=== PATIENT | male | born 1955 | race Caucasian/White ===

== ENCOUNTER 2021-02-19 05:36 | Emergency (ER) | payer BC, MEDICARE ==
[2021-02-19 06:24] LABS: BASOPHILS # (AUTO) 0.1 10^3/uL (0.0-0.1); BASOPHILS % (AUTO) 0.8 %; EOSINOPHILS # (AUTO) 0.3 10^3/uL (0.0-0.7); EOSINOPHILS % (AUTO) 4.6 %; HCT - HEMATOCRIT 44.6 % (42.0-52.0); HGB - HEMOGLOBIN 14.6 g/dL (14.0-18.0); LYMPHOCYTES % (AUTO) 42.4 %; MEAN CORPUSCULAR HEMOGLOBIN 29.9 pg (27.0-31.0); MEAN CORPUSCULAR HGB CONC 32.7 g/dL (32.0-36.0); MEAN CORPUSCULAR VOLUME 91.4 fL (80.0-94.0); MEAN PLATELET VOLUME 9.5 fL (7.4-11.4); MONOCYTES # (AUTO) 0.9 10^3/uL (0.0-1.0); MONOCYTES % (AUTO) 13.1 %; NEUTROPHILS # (AUTO) 2.8 10^3/uL (1.5-6.6); PLT - PLATELET COUNT 278 10^3/uL (130-450); RED BLOOD COUNT 4.88 10^6/uL (4.70-6.10); RED CELL DISTRIBUTION WIDTH 13.2 % (12.0-15.0); WHITE BLOOD COUNT 7.2 x10^3/uL (4.8-10.8)
[2021-02-19 06:35] LABS: BILIRUBIN,URINE NEGATIVE (NEGATIVE); GLUCOSE, URINE (UA) NEGATIVE (NEGATIVE); KETONES,URINE (UA) NEGATIVE (NEGATIVE); LEUKOCYTE ESTERASE, URINE NEGATIVE (NEGATIVE); NITRITE,URINE NEGATIVE (NEGATIVE); OCCULT BLOOD,URINE MODERATE (NEGATIVE); PH,URINE 5.5 PH (5.0-7.5); PROTEIN,URINE NEGATIVE (NEGATIVE); UROBILINOGEN,URINE 0.2 (NORMAL) E.U./dL (NORMAL)
[2021-02-19 06:36] LABS: ALBUMIN 4.1 g/dL (3.2-5.5); ALBUMIN/GLOBULIN RATIO 1.1 (1.0-2.2); BILIRUBIN,TOTAL 0.6 mg/dL (0.2-1.0); CREATININE 0.8 mg/dL (0.6-1.2); POTASSIUM 3.5 mmol/L (3.5-5.0); TOTAL PROTEIN 7.9 g/dL (6.7-8.2)
[2021-02-19 06:37] LABS: CLARITY,URINE CLEAR (CLEAR)
[2021-02-19] MEDS ORDERED: ONDANSETRON 4 MG/2 ML VIAL IVP STA (06:37)
[2021-02-19] MEDS ORDERED: KETOROLAC 30 MG/ML VIAL IVP STA (06:37)
[2021-02-19 06:46] LABS: BACTERIA,URINE None Seen /HPF (None Seen); MUCUS,URINE Few Strands; SQUAMOUS EPITHELIAL CELL,UR NONE SEEN (<= Few); WBC,URINE 0-3 /HPF (0-3)
[2021-02-19] MEDS ORDERED: SODIUM CHLORIDE 0.9% 1,000 ML IV STA (07:06)
[2021-02-19] MEDS ORDERED: LIDOCAINE-MPF 2% 7 ML in SODIUM CHLORIDE 0.9% 50 ML IV STA (07:24)
--- NOTE | 2021-02-19 07:43 | ED Physician Documentation ---
PD HPI ABD PAIN - Stated complaint Stated Complaint: L SIDE PX, VOMIT - Chief complaint Chief Complaint: Abd Pain - History obtained from History obtained from: Patient - History of Present Illness Timing - onset: Last night Timing - duration: Hours (6) Timing - details: Abrupt onset Pain level max: 10 Pain level now: 10 Quality: Aching, Pain Location: Other (L flank) Improved by: Other (nothing) Worsened by: Other (nothing) Associated symptoms: Nausea, Hematuria. No: Fever, Vomiting, Hematemesis, Diarrhea, Constipation, Melena, Hematochezia, Dysuria, Chest pain, Dizzy, Near syncope / syncope, Loss of appetite, Weight loss, Testicular pain Similar symptoms before: Diagnosis (kidney stones) Recently seen: Not recently seen Review of Systems Constitutional: denies: Fever, Chills Nose: denies: Rhinorrhea / runny nose, Congestion GI: denies: Vomiting, Diarrhea Skin: denies: Rash Musculoskeletal: denies: Neck pain, Back pain Neurologic: denies: Headache PD PAST MEDICAL HISTORY - Past Medical History Past Medical History: Yes : Kidney stones - Past Surgical History Past Surgical History: Yes Ortho: Spine surgery, Other - Present Medications Home Medications: Ambulatory Orders Medication Instructions Recorded Confirmed Gabapentin [Neurontin] 600 mg PO DAILY 02/19/21 02/19/21 Latanoprost 0.005% Ophth Drops 1 drops EACHEYE DAILY 02/19/21 02/19/21 [Xalatan Ophth Drops] Meloxicam [Mobic] 15 mg PO DAILY PRN #20 tablet 02/19/21 Ondansetron Odt [Zofran] 4 mg TL Q6H PRN #10 tablet 02/19/21 Tamsulosin [Flomax] 0.4 mg PO DAILY #14 cap 02/19/21 Tramadol HCl [Ultram] 50 mg PO DAILY PRN 02/19/21 02/19/21 traMADol [Ultram] 100 mg PO Q6H #45 tablet 02/19/21 - Allergies Allergies/Adverse Reactions: Allergies Allergy/AdvReac Type Severity Reaction Status Date / Time codeine AdvReac Emesis Verified 02/19/21 05:58 oxycodone AdvReac Emesis Verified 02/19/21 05:58 - Social History Does the pt smoke?: No Smoking Status: Never smoker Does the pt drink ETOH?: No Does the pt have substance abuse?: No - Immunizations Immunizations are current?: Yes - POLST Patient has POLST: No PD ED PE NORMAL - Vitals Vital signs reviewed: Yes - General General: Alert and oriented X 3, No acute distress - HEENT HEENT: Moist mucous membranes - Neck Neck: Supple, no meningeal sign - Cardiac Cardiac: RRR, Strong equal pulses - Respiratory Respiratory: No respiratory distress, Clear bilaterally - Abdomen Abdomen: Soft, Non tender, Non distended - Back Back: No CVA TTP, No spinal TTP - Derm Derm: Warm and dry - Extremities Extremities: No edema - Neuro Neuro: Alert and oriented X 3 - Psych Psych: Normal mood, Normal affect Results - Vitals Vitals: Vital Signs - 24 hr 02/19/21 05:50 Temperature 36.0 C L Heart Rate 70 Respiratory 20 Rate Blood Pressure 143/76 H O2 Saturation 97 Oxygen O2 Source Room air - Labs Labs: Laboratory Tests 02/19/21 02/19/21 02/19/21 06:10 06:17 06:17 WBC 7.2 RBC 4.88 Hgb 14.6 Hct 44.6 MCV 91.4 MCH 29.9 MCHC 32.7 RDW 13.2 Plt Count 278 MPV 9.5 Neut # (Auto) 2.8 Lymph # (Auto) 3.0 [place] # (Auto) 0.9 Eos # (Auto) 0.3 Baso # (Auto) 0.1 Absolute Nucleated RBC 0.00 Nucleated RBC % 0.0 Sodium 139 Potassium 3.5 Chloride 100 L Carbon Dioxide 29 Anion Gap 10.0 BUN 18 Creatinine 0.8 Estimated GFR (MDRD) 97 Glucose 116 H Calcium 9.0 Total Bilirubin 0.6 AST 28 ALT 26 Alkaline Phosphatase 78 Total Protein 7.9 Albumin 4.1 Globulin 3.8 Albumin/Globulin Ratio 1.1 Lipase 29 Urine Color YELLOW Urine Clarity CLEAR Urine pH 5.5 Ur Specific [place] >=1.030 H Urine Protein NEGATIVE Urine Glucose (UA) NEGATIVE Urine Ketones NEGATIVE Urine Occult Blood MODERATE H Urine Nitrite NEGATIVE Urine Bilirubin NEGATIVE Urine Urobilinogen 0.2 (NORMAL) Ur Leukocyte Esterase NEGATIVE Urine RBC 11-25 H Urine WBC 0-3 Ur Squamous Epith Cells NONE SEEN Urine Bacteria None Seen Urine Mucus Few Strands Ur Microscopic Review INDICATED Urine Culture Comments NOT INDICATED - Rads (name of study) CT abd/pelvis Radiology: Final report received, EMP read contemporaneously, See rad report PD MEDICAL DECISION MAKING - ED course Complexity details: reviewed results, re-evaluated patient, considered differential, d/w patient ED course: 65-year-old male with a left-sided ureteral stone, 6 x 3 mm. Pain well controlled. Given Toradol and IV lidocaine here. We will have him follow-up with his doctor for further care. Recommend he follow-up with urology as well. Afebrile. Tolerating p.o. without difficulty. Patient counseled regarding signs and symptoms for which I believe and urgent re-evaluation would be necessary. Patient with good understanding of and agreement to plan and is comfortable going home at this time This document was made in part using voice recognition software. While efforts are made to proofread this document, sound alike and grammatical errors may occur. 1. Obstructing calculus in the proximal left ureter measuring 0.6 x 0.3 cm. Mild left kidney inferior pole moiety hydronephrosis. 2. Left renal collecting system is duplicated. 3. Additional small nonobstructing kidney stones bilaterally. Departure - Departure Disposition: 01 Home, Self Care Clinical Impression: Ureteral calculus, left Condition: Good Instructions: ED Stone Renal W Colic Follow-Up: Dennis Mcdonnell MD [Primary Care Provider] - Russ Shi MD [Physician No Access] - Renu Virk MD [Physician No Access] - Prescriptions: Tamsulosin [Flomax] 0.4 mg PO DAILY #14 cap Meloxicam [Mobic] 15 mg PO DAILY PRN #20 tablet PRN Reason: pain traMADol [Ultram] 100 mg PO Q6H #45 tablet Ondansetron Odt [Zofran] 4 mg TL Q6H PRN #10 tablet PRN Reason: Nausea / Vomiting Comments: Your prescriptions were sent to the [facility] pharmacy today. P regulo pick them up. You do have a 6 x 3 mm kidney stone. This should pass, but I would recommend that you contact urology for a follow-up. Return if you worsen. 1. Obstructing calculus in the proximal left ureter measuring 0.6 x 0.3 cm. Mild left kidney inferior pole moiety hydronephrosis. 2. Left renal collecting system is duplicated. 3. Additional small nonobstructing kidney stones bilaterally.
--- NOTE | 2021-02-19 08:19 | CT Report ---
PROCEDURE: Abdomen/Pelvis WO INDICATIONS: L sided flank pain, hematuria TECHNIQUE: Noncontrast 5 mm thick sections acquired from the diaphragms to the symphysis. 5 mm coronal and sagi ttal reformats were then performed. For radiation dose reduction, the following was used: automated exposure control, adjustment of mA and/or kV according to patient size. COMPARISON: None. FINDINGS: Image quality: Excellent. ABDOMEN: Lung bases: Lung bases are clear. Heart size is normal. Solid organs: Liver is normal in size. Gallbladder is unremarkable. Pancreas is normal in contours. Small splenules. No adrenal nodules. Kidneys are overall normal in size. 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 Small right kidney inferior pole e xophytic cyst which is difficult to further characterize. There is beam hardening artifact. Right kid joselyn nonobstructing calculus measuring 0.3 cm. Left kidney proximal ureter obstructing calculus measur ing 0.6 x 0.3 cm, (3/39). Mild hydronephrosis at the inferior pole the left kidney. Additional nonobs tructing calculus in the left kidney superior pole measuring 0.2 cm. Peritoneum and bowel: Unenhanced bowel loops demonstrate normal wall thickness and caliber. Appendix is not identified. No free fluid or air. Nodes and vessels: No retroperitoneal or mesenteric adenopathy by size criteria. Aorta and inferior vena cava are normal in caliber. Mild calcified plaque. Retroaortic left renal vein. Miscellaneous: No ventral hernias. PELVIS: Genitourinary: Bladder wall thickness is normal. No bladder stones. Prostate calcifications. Miscellaneous: No inguinal hernias or adenopathy. Left buttocks generator device with thoracic spine thecal lead. Bones: No suspicious bony lesions. No vertebral body compression fractures. Prominent vertebral bod y osteophytes. Pedicle screws at L3 and L5. Left hip screw fixation. IMPRESSION: 1. Obstructing calculus in the proximal left ureter measuring 0.6 x 0.3 cm. Mild left kidney inferior pole moiety hydronephrosis. 2. Left renal collecting system is duplicated. 3. Additional small nonobstructing kidney stones bilaterally. Reviewed by: Bassem Herring MD on 02/19/2021 8:18 AM [facility] Approved by: Bassem Herring MD on 02/19/2021 8:18 AM PST Station ID: [id number]
[2021-02-19 08:39] VITALS: BP 165/75
== END 2021-02-19 08:39 | disposition home or self-care (01) ==
LOC: ED 05:36
DX: N13.2 Hydronephrosis with renal and ureteral calculous obstruction (principal)
CPT/HCPCS: 36415; 74176; 80053; 81001; 83690; 85025; 96365; 96375; 99284; J7040; 81003; 87086

== ENCOUNTER 2021-05-11 18:31 | Emergency (ER) | payer BC, MEDICARE ==
[2021-05-11 19:11] LABS: BASOPHILS # (AUTO) 0.1 10^3/uL (0.0-0.1); BASOPHILS % (AUTO) 0.6 %; EOSINOPHILS # (AUTO) 0.2 10^3/uL (0.0-0.7); EOSINOPHILS % (AUTO) 1.5 %; HCT - HEMATOCRIT 43.4 % (42.0-52.0); HGB - HEMOGLOBIN 14.6 g/dL (14.0-18.0); LYMPHOCYTES # (AUTO) 2.2 10^3/uL (1.5-3.5); MEAN CORPUSCULAR HEMOGLOBIN 29.9 pg (27.0-31.0); MEAN CORPUSCULAR HGB CONC 33.6 g/dL (32.0-36.0); MEAN CORPUSCULAR VOLUME 88.8 fL (80.0-94.0); MEAN PLATELET VOLUME 9.8 fL (7.4-11.4); MONOCYTES # (AUTO) 1.1 10^3/uL (0.0-1.0); MONOCYTES % (AUTO) 11.2 %; NEUTROPHILS # (AUTO) 6.5 10^3/uL (1.5-6.6); NEUTROPHILS % (AUTO) 64.5 %; PLT - PLATELET COUNT 281 10^3/uL (130-450); RED BLOOD COUNT 4.89 10^6/uL (4.70-6.10); RED CELL DISTRIBUTION WIDTH 13.2 % (12.0-15.0)
[2021-05-11 19:23] LABS: ALBUMIN 4.4 g/dL (3.2-5.5); ALBUMIN/GLOBULIN RATIO 1.3 (1.0-2.2); BILIRUBIN,TOTAL 0.3 mg/dL (0.2-1.0); CALCIUM 9.3 mg/dL (8.5-10.3); CREATININE 0.7 mg/dL (0.6-1.2); POTASSIUM 3.4 mmol/L (3.5-5.0); TOTAL PROTEIN 7.9 g/dL (6.7-8.2)
[2021-05-11 19:29] LABS: BILIRUBIN,URINE NEGATIVE (NEGATIVE); GLUCOSE, URINE (UA) NEGATIVE (NEGATIVE); KETONES,URINE (UA) NEGATIVE (NEGATIVE); LEUKOCYTE ESTERASE, URINE NEGATIVE (NEGATIVE); NITRITE,URINE NEGATIVE (NEGATIVE); OCCULT BLOOD,URINE SMALL (NEGATIVE); PROTEIN,URINE NEGATIVE (NEGATIVE); UROBILINOGEN,URINE 0.2 (NORMAL) E.U./dL (NORMAL)
[2021-05-11 19:30] LABS: CLARITY,URINE CLEAR (CLEAR)
[2021-05-11 19:52] LABS: BACTERIA,URINE None Seen /HPF (None Seen); SQUAMOUS EPITHELIAL CELL,UR NONE SEEN (<= Few); WBC,URINE 0-3 /HPF (0-3)
--- NOTE | 2021-05-11 20:14 | ED Physician Documentation ---
PD HPI ABD PAIN - Stated complaint Stated Complaint: KIDNEY STONE - Chief complaint Chief Complaint: Abd Pain - History obtained from History obtained from: Patient - Additional information Additional information: 65 yo male with 3 hrs of L flank and lateral abd pain. Constant sharp pain 7-12/04. Had hx 3x6mm renal colic same side 02/14. Had nausea, no vomiting. Review of Systems Constitutional: denies: Fever, Chills Cardiac: denies: Chest pain / pressure, Palpitations Respiratory: denies: Dyspnea, Cough PD PAST MEDICAL HISTORY - Past Medical History : Kidney stones - Past Surgical History Past Surgical History: Yes Ortho: Spine surgery, Other - Present Medications Home Medications: Ambulatory Orders Medication Instructions Recorded Confirmed Gabapentin [Neurontin] 600 mg PO DAILY 02/19/21 02/19/21 Latanoprost 0.005% Ophth Drops 1 drops EACHEYE DAILY 02/19/21 02/19/21 [Xalatan Ophth Drops] Meloxicam [Mobic] 15 mg PO DAILY PRN #20 tablet 02/19/21 Ondansetron Odt [Zofran] 4 mg TL Q6H PRN #10 tablet 02/19/21 Tamsulosin [Flomax] 0.4 mg PO DAILY #14 cap 02/19/21 Tramadol HCl [Ultram] 50 mg PO DAILY PRN 02/19/21 02/19/21 traMADol [Ultram] 100 mg PO Q6H #45 tablet 02/19/21 Tamsulosin [Flomax] 0.4 mg PO DAILY #14 cap 05/11/21 traMADol [Ultram] 1 - 2 tab PO ONCE PRN #25 tablet 05/11/21 - Allergies Allergies/Adverse Reactions: Allergies Allergy/AdvReac Type Severity Reaction Status Date / Time codeine AdvReac Emesis Verified 05/11/21 18:50 oxycodone AdvReac Emesis Verified 05/11/21 18:50 - Social History Does the pt smoke?: No Smoking Status: Never smoker Does the pt drink ETOH?: No Does the pt have substance abuse?: No - Immunizations Immunizations are current?: Yes - POLST Patient has POLST: No PD ED PE NORMAL - Vitals Vital signs reviewed: Yes - General General: Alert and oriented X 3, No acute distress - Abdomen Abdomen: Normal bowel sounds, Soft, Non tender - Neuro Neuro: Alert and oriented X 3, Normal speech - Psych Psych: Normal mood, Normal affect Results - Vitals Vitals: Vital Signs - 24 hr 05/11/21 05/11/21 18:46 18:53 Temperature 36.0 C L Heart Rate 75 90 Respiratory 18 28 H Rate Blood Pressure 176/96 H 151/90 H O2 Saturation 100 100 Oxygen O2 Source Room air - Labs Labs: Laboratory Tests 05/11/21 05/11/21 05/11/21 19:06 19:06 19:20 WBC 10.0 RBC 4.89 Hgb 14.6 Hct 43.4 MCV 88.8 MCH 29.9 MCHC 33.6 RDW 13.2 Plt Count 281 MPV 9.8 Neut # (Auto) 6.5 Lymph # (Auto) 2.2 Door # (Auto) 1.1 H Eos # (Auto) 0.2 Baso # (Auto) 0.1 Absolute Nucleated RBC 0.00 Nucleated RBC % 0.0 Sodium 141 Potassium 3.4 L Chloride 101 Carbon Dioxide 29 Anion Gap 11.0 BUN 20 Creatinine 0.7 Estimated GFR (MDRD) 114 Glucose 134 H Calcium 9.3 Total Bilirubin 0.3 AST 37 ALT 33 Alkaline Phosphatase 80 Total Protein 7.9 Albumin 4.4 Globulin 3.5 Albumin/Globulin Ratio 1.3 Lipase 28 Urine Color YELLOW Urine Clarity CLEAR Urine pH 7.0 Ur Specific [place] 1.020 Urine Protein NEGATIVE Urine Glucose (UA) NEGATIVE Urine Ketones NEGATIVE Urine Occult Blood SMALL H Urine Nitrite NEGATIVE Urine Bilirubin NEGATIVE Urine Urobilinogen 0.2 (NORMAL) Ur Leukocyte Esterase NEGATIVE Urine RBC 11-25 H Urine WBC 0-3 Ur Squamous Epith Cells NONE SEEN Urine Bacteria None Seen Ur Microscopic Review INDICATED Urine Culture Comments NOT INDICATED PD MEDICAL DECISION MAKING - ED course ED course: 65-year-old gentleman with likely recurrent renal colic. He had a CT just a few months ago so less concern for AAA or other vascular issues especially since this is very reminiscent. His pain was already getting better here so was just given some Toradol and 2 tramadol here. He cannot take the usual narcotics and I discussed with him that I do not routinely prescribe tramadol but he did not have any ill effects from it so seems reasonable in this case. Departure - Departure Disposition: 01 Home, Self Care Clinical Impression: Renal colic Condition: Good Record reviewed to determine appropriate education?: Yes Instructions: ED Stone Renal W Colic Prescriptions: Tamsulosin [Flomax] 0.4 mg PO DAILY #14 cap traMADol [Ultram] 1 - 2 tab PO ONCE PRN #25 tablet PRN Reason: Pain Comments: I sent prescriptions electronically to the [facility] pharmacy at the corner of [address] here in [place]. Since this is your second kidney stone in about 3 months, seems reasonable to have you follow-up with a urologist, talk with your doctor about a referral. Return for new or worsening symptoms. I am prescribing a short course of narcotic pain medication for you. These are potentially dangerous and addictive medications that should be used carefully. These medications may constipate you. Take an dnhg-lfr-jszhnlr stool softener (docusate) twice daily with plenty of water while taking these medications. If you go 24 hours without a bowel movement, take cgyb-rnn-ywhpzek miralax, per package instructions. Do not drink or drive while taking these medications. If you received narcotic or sedating medications while in the emergency department, do not drive for 24 hours. Store this medication in a safe, secure place and out of reach of children. It is a violation of federal law to give or sell this medication to another person or to use in a manner other than prescribed. The ED will not refill narcotic prescriptions, including prescriptions lost or stolen. To dispose of unwanted medications: 1. [facility] at [address] in [place] has a medication drop box. They accept prescription medications (in pill form) Monday through Monday 9:00 a.m. to 5:00 p.m. 2. [facility] accepts prescription medications (in pill form only) for disposal year round. Call for more information. 3. Contact the [facility] for the next [facility] sponsored prescription drug collection event. , [phone], or [phone]; Note that many narcotic pain relievers also contain Tylenol/acetaminophen. Please ensure that your total dose of acetaminophen from all sources does not exceed 3 g (3000 mg) per day.
[2021-05-11] MEDS ORDERED: traMADol 50 MG TABLET PO STA (20:19)
[2021-05-11] MEDS ORDERED: KETOROLAC 15 MG/ML VIAL IVP STA (20:19)
[2021-05-11 21:04] VITALS: BP 159/92
== END 2021-05-11 20:50 | disposition home or self-care (01) ==
LOC: ED 18:31
DX: N23 Unspecified renal colic (principal)
CPT/HCPCS: 36415; 80048; 80053; 81001; 81003; 83690; 85025; 87086; 96374; 99282

== ENCOUNTER 2021-05-23 10:19 | Outpatient (CLI) | payer BC, MEDICARE | END 2021-05-23 10:20 | disposition critical access hospital (66) | LOC: EMS 10:19 | DX: R10.32 Left lower quadrant pain (principal); R11.0 Nausea; R06.02 Shortness of breath; R42 Dizziness and giddiness | CPT/HCPCS: A0425; A0427 ==

== ENCOUNTER 2021-05-23 10:30 | Emergency (ER) | payer BC, MEDICARE ==
[2021-05-23] MEDS ORDERED: ONDANSETRON 4 MG/2 ML VIAL IVP STA (10:39)
[2021-05-23] MEDS ORDERED: KETOROLAC 30 MG/ML VIAL IVP STA (10:39)
[2021-05-23] MEDS ORDERED: SODIUM CHLORIDE 0.9% 1,000 ML IV STA (10:39)
[2021-05-23 11:11] LABS: BASOPHILS # (AUTO) 0.1 10^3/uL (0.0-0.1); BASOPHILS % (AUTO) 0.4 %; EOSINOPHILS % (AUTO) 0.1 %; HCT - HEMATOCRIT 44.2 % (42.0-52.0); HGB - HEMOGLOBIN 14.7 g/dL (14.0-18.0); LYMPHOCYTES # (AUTO) 1.1 10^3/uL (1.5-3.5); LYMPHOCYTES % (AUTO) 7.1 %; MEAN CORPUSCULAR HEMOGLOBIN 29.6 pg (27.0-31.0); MEAN CORPUSCULAR HGB CONC 33.3 g/dL (32.0-36.0); MEAN CORPUSCULAR VOLUME 88.9 fL (80.0-94.0); MEAN PLATELET VOLUME 9.8 fL (7.4-11.4); MONOCYTES # (AUTO) 1.3 10^3/uL (0.0-1.0); MONOCYTES % (AUTO) 8.2 %; NEUTROPHILS # (AUTO) 12.7 10^3/uL (1.5-6.6); NEUTROPHILS % (AUTO) 83.9 %; PLT - PLATELET COUNT 282 10^3/uL (130-450); RED BLOOD COUNT 4.97 10^6/uL (4.70-6.10); RED CELL DISTRIBUTION WIDTH 13.5 % (12.0-15.0); WHITE BLOOD COUNT 15.2 x10^3/uL (4.8-10.8)
--- NOTE | 2021-05-23 11:12 | ED Physician Documentation ---
PD HPI ABD PAIN - Stated complaint Stated Complaint: L FLANK PX - Chief complaint Chief Complaint: Abd Pain - History obtained from History obtained from: Patient - History of Present Illness Pain level max: 9 Pain level now: 7 Quality: No: Cramping, Aching, Sharp, Dull, Stabbing, Throbbing, Indigestion, Fullness/distended, Pain Location: All over / everywhere - Additional information Additional information: Patient is a 65-year-old male who presents to the emergency department with left flank pain. This started this morning. Feels similar to prior kidney stones. Last time he had this pain was about 10 days ago. He took tramadol this morning without relief. Has had nausea. The pain wraps around the left flank to the left lower quadrant. No diarrhea. Nothing makes it better or worse. No fever. No urinary symptoms Review of Systems Constitutional: denies: Fever, Chills Respiratory: denies: Cough GI: reports: Nausea. denies: Diarrhea : denies: Dysuria, Frequency, Hesitancy Skin: denies: Rash Musculoskeletal: denies: Neck pain, Back pain Neurologic: denies: Headache PD PAST MEDICAL HISTORY - Past Medical History Past Medical History: Yes : Kidney stones - Past Surgical History Past Surgical History: Yes Ortho: Spine surgery, Other - Present Medications Home Medications: Ambulatory Orders Medication Instructions Recorded Confirmed Gabapentin [Neurontin] 600 mg PO DAILY 02/19/21 05/23/21 Latanoprost 0.005% Ophth Drops 1 drops EACHEYE DAILY 02/19/21 05/23/21 [Xalatan Ophth Drops] Meloxicam [Mobic] 15 mg PO DAILY PRN #20 tablet 02/19/21 05/23/21 Ondansetron Odt [Zofran] 4 mg TL Q6H PRN #10 tablet 02/19/21 05/23/21 Tamsulosin [Flomax] 0.4 mg PO DAILY #14 cap 05/11/21 05/23/21 traMADol [Ultram] 1 - 2 tab PO ONCE PRN #25 tablet 05/11/21 05/23/21 HYDROmorphone [Dilaudid] 2 mg PO Q4H PRN #10 tablet 05/23/21 Ondansetron Odt [Zofran] 4 mg TL Q6H PRN #10 tablet 05/23/21 - Allergies Allergies/Adverse Reactions: Allergies Allergy/AdvReac Type Severity Reaction Status Date / Time codeine AdvReac Emesis Verified 05/23/21 10:39 oxycodone AdvReac Emesis Verified 05/23/21 10:39 - Social History Does the pt smoke?: No Smoking Status: Never smoker Does the pt drink ETOH?: No Does the pt have substance abuse?: No - Immunizations Immunizations are current?: Yes - POLST Patient has POLST: No PD ED PE NORMAL - Vitals Vital signs reviewed: Yes - General General: Alert and oriented X 3, No acute distress, Well developed/nourished - HEENT HEENT: PERRL, Moist mucous membranes - Neck Neck: Supple, no meningeal sign - Cardiac Cardiac: RRR, Strong equal pulses - Respiratory Respiratory: No respiratory distress, Clear bilaterally - Abdomen Abdomen: Soft, Non tender, Non distended - Back Back: No CVA TTP, No spinal TTP - Derm Derm: Warm and dry - Extremities Extremities: No edema - Neuro Neuro: Alert and oriented X 3 - Psych Psych: Normal mood, Normal affect Results - Vitals Vitals: Vital Signs - 24 hr 05/23/21 05/23/21 10:36 12:39 Temperature 35.9 C L 36.5 C Heart Rate 70 70 Respiratory 20 18 Rate Blood Pressure 176/97 H 150/88 H O2 Saturation 98 98 Oxygen O2 Source Room air - Labs Labs: Laboratory Tests 05/23/21 05/23/21 05/23/21 11:06 11:06 12:08 WBC 15.2 H RBC 4.97 Hgb 14.7 Hct 44.2 MCV 88.9 MCH 29.6 MCHC 33.3 RDW 13.5 Plt Count 282 MPV 9.8 Neut # (Auto) 12.7 H Lymph # (Auto) 1.1 L [place] # (Auto) 1.3 H Eos # (Auto) 0.0 Baso # (Auto) 0.1 Absolute Nucleated RBC 0.00 Nucleated RBC % 0.0 Sodium 139 Potassium 3.4 L Chloride 100 L Carbon Dioxide 26 Anion Gap 13.0 BUN 18 Creatinine 0.9 Estimated GFR (MDRD) 85 L Glucose 134 H Calcium 9.2 Total Bilirubin 1.0 AST 37 ALT 34 Alkaline Phosphatase 80 Total Protein 8.0 Albumin 4.5 Globulin 3.5 Albumin/Globulin Ratio 1.3 Lipase 25 Urine Color YELLOW Urine Clarity SL. CL[place]DY Urine pH 8.0 H Ur Specific [place] 1.020 Urine Protein NEGATIVE Urine Glucose (UA) NEGATIVE Urine Ketones 15 H Urine Occult Blood NEGATIVE Urine Nitrite NEGATIVE Urine Bilirubin NEGATIVE Urine Urobilinogen 0.2 (NORMAL) Ur Leukocyte Esterase NEGATIVE Urine RBC 0-5 Urine WBC 0-3 Ur Squamous Epith Cells NONE SEEN Amorphous Sediment Moderate Urine Bacteria Few Ur Microscopic Review INDICATED Urine Culture Comments NOT INDICATED - Rads (name of study) CT abd/pelvis Radiology: Final report received, EMP read contemporaneously, See rad report PD MEDICAL DECISION MAKING - ED course Complexity details: reviewed old records, reviewed results, re-evaluated patient, considered differential, d/w patient ED course: Appears to have the same 0.6 x 0.3 cm obstructing proximal left ureteral stone. Recommend that he follow-up with urology for removal of the stone. Patient is well-appearing, nontoxic. Afebrile. Pain well controlled. No evidence of UTI. No fevers. No evidence of sepsis. Patient counseled regarding signs and symptoms for which I believe and urgent re-evaluation would be necessary. Patie nt with good understanding of and agreement to plan and is comfortable going home at this time This document was made in part using voice recognition software. While efforts are made to proofread this document, sound alike and grammatical errors may occur. I am prescribing a short course of short-acting opioid pain medication for this patient. I have reviewed the patients BILINGUAL SPEECH THERAPIST and no concerning findings were noted. I have discussed that the opioids are for short term therapy only, and will not be refilled from the ED. 1. Redemonstration of 0.6 x 0.3 cm obstructing proximal left ureteral stone with associated mild left hydronephrosis. There is also mild-moderate left perinephric stranding. Recommend correlation with clinical and laboratory findings for possible concurrent infectious uropathy. 2. Redemonstration of additional nonobstructing tiny punctate nephroliths measuring up to 3 mm on the right and 2 mm on the left. 3. Atherosclerosis. Departure - Departure Disposition: 01 Home, Self Care Clinical Impression: Renal colic Condition: Good Instructions: ED Stone Renal W Colic Follow-Up: Dennis Mcdonnell MD [Primary Care Provider] - [facility] [Provider Group] Renu Virk MD [Physician No Access] - Fide Kong MD [Provider Admit Priv/Credential] - Prescriptions: HYDROmorphone [Dilaudid] 2 mg PO Q4H PRN #10 tablet PRN Reason: Abdominal Pain Ondansetron Odt [Zofran] 4 mg TL Q6H PRN #10 tablet PRN Reason: Nausea / Vomiting Comments: Please follow-up with a urologist for further care. Return if you worsen. Drink plenty of fluids. You appear to have the same 6 x 3 mm ureteral stone in your left ureter. Return especially for fevers, vomiting or any other worsening symptoms. Your prescriptions were sent to the [facility] pharmacy. 1. Redemonstration of 0.6 x 0.3 cm obstructing proximal left ureteral stone with associated mild left hydronephrosis. There is also mild-moderate left perinephric stranding. Recommend correlation with clinical and laboratory findings for possible concurrent infectious uropathy. 2. Redemonstration of additional nonobstructing tiny punctate nephroliths measuring up to 3 mm on the right and 2 mm on the left. 3. Atherosclerosis. I am prescribing a short course of narcotic pain medication for you. These are potentially dangerous and addictive medications that should be used carefully. These medications may constipate you. Take an jmbe-kmc-emqvirv stool softener (docusate) twice daily with plenty of water while taking these medications. If you go 24 hours without a bowel movement, take eolx-etb-xakqsnq miralax, per package instructions. Do not drink or drive while taking these medications. If you received narcotic or sedating medications while in the emergency department, do not drive for 24 hours. Store this medication in a safe, secure place and out of reach of children. It is a violation of federal law to give or sell this medication to another person or to use in a manner other than prescribed. The ED will not refill narcotic prescriptions, including prescriptions lost or stolen. To dispose of unwanted medications: 1. [facility] at [address] in [place] has a medication drop box. They accept prescription medications (in pill form) Monday through Monday 9:00 a.m. to 5:00 p.m. 2. The [facility] accepts prescription medications (in pill form only) for disposal year round. Call for more information. 3. Contact the [facility] for the next [facility] sponsored prescription drug collection event. , [phone], or [phone]; Discharge Date/Time: 05/23/21 12:42
[2021-05-23 11:23] LABS: ALBUMIN 4.5 g/dL (3.2-5.5); ALBUMIN/GLOBULIN RATIO 1.3 (1.0-2.2); CALCIUM 9.2 mg/dL (8.5-10.3); CREATININE 0.9 mg/dL (0.6-1.2); POTASSIUM 3.4 mmol/L (3.5-5.0)
--- NOTE | 2021-05-23 11:50 | CT Report ---
PROCEDURE: Abdomen/Pelvis WO INDICATIONS: L flank pain, h/o renal stones TECHNIQUE: Noncontrast 5 mm thick sections acquired from the diaphragms to the symphysis. 5 mm coronal and sagi ttal reformats were then performed. For radiation dose reduction, the following was used: automated exposure control, adjustment of mA and/or kV according to patient size. COMPARISON: 02/19/2021. FINDINGS: Image quality: Excellent. ABDOMEN: Lung bases: Lung bases are clear. Heart size is normal. Solid organs: Liver is normal in size. Small splenule is again noted. Gallbladder is unremarkable. Pancreas is normal in contours. No adrenal nodules. Redemonstration of obstructing 0.6 x 0.3 cm prox imal left ureteral stone with associated mild left hydronephrosis. There is also mild-moderate left p erinephric stranding. Additional tiny punctate nephroliths are seen in the bilateral kidneys. These m easure up to 3 mm on the right and 2 mm on the left. Peritoneum and bowel: Unenhanced bowel loops demonstrate normal wall thickness and caliber. No free fluid or air. Nodes and vessels: No retroperitoneal or mesenteric adenopathy by size criteria. Aorta and inferior vena cava are normal in caliber. Miscellaneous: No ventral hernias. PELVIS: Genitourinary: Bladder wall thickness is normal. No urinary bladder stones. Miscellaneous: No inguinal hernias or adenopathy. Neurostimulator device is again noted over the le ft buttocks region. Bones: No suspicious bony lesions. No acute vertebral body compression fractures. Redemonstration of lower lumbar fusion. Multilevel spondylosis of the imaged spine. IMPRESSION: 1. Redemonstration of 0.6 x 0.3 cm obstructing proximal left ureteral stone with associated mild left hydronephrosis. There is also mild-moderate left perinephric stranding. Recommend correlation with c linical and laboratory findings for possible concurrent infectious uropathy. 2. Redemonstration of additional nonobstructing tiny punctate nephroliths measuring up to 3 mm on the right and 2 mm on the left. 3. Atherosclerosis. Reviewed by: Richardson Shaver MD on 05/23/2021 10:[address] [facility] Approved by: Richardson Shaver MD on 05/23/2021 10:[address] [facility] Station ID: [id number]
[2021-05-23 12:15] LABS: BILIRUBIN,URINE NEGATIVE (NEGATIVE); GLUCOSE, URINE (UA) NEGATIVE (NEGATIVE); KETONES,URINE (UA) 15 mg/dL (NEGATIVE); LEUKOCYTE ESTERASE, URINE NEGATIVE (NEGATIVE); NITRITE,URINE NEGATIVE (NEGATIVE); OCCULT BLOOD,URINE NEGATIVE (NEGATIVE); PROTEIN,URINE NEGATIVE (NEGATIVE); UROBILINOGEN,URINE 0.2 (NORMAL) E.U./dL (NORMAL)
[2021-05-23 12:17] LABS: CLARITY,URINE SL. CLOUDY (CLEAR)
[2021-05-23 12:24] LABS: AMORPHOUS SEDIMENT,UR Moderate /LPF; BACTERIA,URINE Few /HPF (None Seen); RBC,URINE 0-5 /HPF (0-5); SQUAMOUS EPITHELIAL CELL,UR NONE SEEN (<= Few); WBC,URINE 0-3 /HPF (0-3)
[2021-05-23 12:42] VITALS: BP 150/88
== END 2021-05-23 12:42 | disposition home or self-care (01) ==
LOC: EDUNIT# → ED 10:30
DX: N13.2 Hydronephrosis with renal and ureteral calculous obstruction (principal)
CPT/HCPCS: 36415; 80053; 81001; 81003; 83690; 85025; 87086; 96374; 99284

== ENCOUNTER 2021-07-08 10:45 | Outpatient (CLI) | payer BC, MEDICARE ==
--- NOTE | 2021-07-08 12:43 | XRAY Report ---
PROCEDURE: Foot 3 View RT INDICATIONS: FOOT PAIN, RIGHT TECHNIQUE: 3 views of the foot were acquired. COMPARISON: None. FINDINGS: BONES: Comminuted fractures of the first proximal phalanx. Joint space loss and osteophytosis of the first interphalangeal joint. Diffuse osteopenia. The remaining visualized osseous structures appear m aintained. SOFT TISSUES: Edema about the fracture site. IMPRESSION: 1.Comminuted fracture of the first proximal phalanx. Reviewed by: Kyle Byers MD on 07/08/2021 12:41 PM PDT Approved by: Kyle Byers MD on 07/08/2021 12:41 PM PDT Station ID: [id number]
== END 2021-07-08 23:59 | disposition home or self-care (01) ==
LOC: DI.N 10:45
PROVIDERS: ATTEND Physician Assistant Medical
DX: S92.411A Displaced fracture of proximal phalanx of right great toe, initial encounter for closed fracture (principal)

== ENCOUNTER 2021-08-17 07:46 | Outpatient (CLI) | payer MEDICARE, BC ==
--- NOTE | 2021-08-17 16:56 | XRAY Report ---
PROCEDURE: Toe(s) RT INDICATIONS: RIGHT GREAT TOE FRACTURE TECHNIQUE: 3 views of the first toe(s) acquired. COMPARISON: None FINDINGS: Bones: There is a comminuted fracture extending to both the superior and inferior articular surfaces of the first proximal phalanx. Fracture lucencies are noted in the proximal, mid and distal portions of the proximal phalanx. Mild displacement is present. No suspicious bony lesions. Soft tissues: No suspicious soft tissue densities. IMPRESSION: Comminuted intra-articular first proximal phalanx fracture. Reviewed by: Lisa Agustin MD on 08/17/2021 4:55 PM PDT Approved by: Lisa Agustin MD on 08/17/2021 4:55 PM PDT Station ID: [id number]
== END 2021-08-17 23:59 | disposition home or self-care (01) ==
LOC: DI.WOS 07:46
PROVIDERS: ATTEND Orthopaedic Surgery
DX: S92.411A Displaced fracture of proximal phalanx of right great toe, initial encounter for closed fracture (principal)

== ENCOUNTER 2021-09-16 08:00 | Outpatient (CLI) | payer MEDICARE, BC ==
--- NOTE | 2021-09-16 16:00 | XRAY Report ---
PROCEDURE: Toe(s) RT INDICATIONS: TOE FX TECHNIQUE: 3 views of the right first toe(s) acquired. COMPARISON: 08/17/2021. FINDINGS: Bones: Mildly displaced, comminuted, intra-articular fracture of the right first proximal phalange. Soft tissues: No suspicious soft tissue densities. IMPRESSION: Right first proximal phalange fracture not significantly changed compared to 08/17/2021. Reviewed by: Yanira Greene MD, PhD on 09/16/2021 3:58 PM PDT Approved by: Yanira Greene MD, PhD on 09/16/2021 3:58 PM PDT Station ID: [id number]
== END 2021-09-16 23:59 | disposition home or self-care (01) ==
LOC: DI.WOS 08:00
PROVIDERS: ATTEND Orthopaedic Surgery
DX: S92.414D Nondisplaced fracture of proximal phalanx of right great toe, subsequent encounter for fracture with routine healing (principal)

== ENCOUNTER 2023-02-10 08:50 | Outpatient (CLI) | payer MEDICARE, BC ==
[2023-02-10 09:09] LABS: BASOPHILS # (AUTO) 0.1 10^3/uL (0.0-0.1); BASOPHILS % (AUTO) 0.7 %; EOSINOPHILS # (AUTO) 0.3 10^3/uL (0.0-0.7); HCT - HEMATOCRIT 46.8 % (42.0-52.0); HGB - HEMOGLOBIN 15.1 g/dL (14.0-18.0); LYMPHOCYTES # (AUTO) 2.4 10^3/uL (1.5-3.5); LYMPHOCYTES % (AUTO) 34.7 %; MEAN CORPUSCULAR HEMOGLOBIN 29.2 pg (27.0-31.0); MEAN CORPUSCULAR HGB CONC 32.3 g/dL (32.0-36.0); MEAN CORPUSCULAR VOLUME 90.3 fL (80.0-94.0); MEAN PLATELET VOLUME 9.8 fL (7.4-11.4); MONOCYTES # (AUTO) 0.8 10^3/uL (0.0-1.0); MONOCYTES % (AUTO) 12.1 %; NEUTROPHILS # (AUTO) 3.4 10^3/uL (1.5-6.6); NEUTROPHILS % (AUTO) 48.4 %; PLT - PLATELET COUNT 281 10^3/uL (130-450); RED BLOOD COUNT 5.18 10^6/uL (4.70-6.10); RED CELL DISTRIBUTION WIDTH 13.2 % (12.0-15.0)
[2023-02-10 09:22] LABS: CALCIUM 9.7 mg/dL (8.5-10.3); CREATININE 0.8 mg/dL (0.6-1.3); PARTIAL THROMBOPLASTIN TIME 32.9 secs (24.9-33.3); POTASSIUM 3.6 mmol/L (3.5-4.5)
[2023-02-10 09:27] LABS: INR 1.1 (0.8-1.2); PT - PROTHROMBIN TIME 12.2 secs (9.9-12.6)
== END 2023-02-10 08:51 | disposition home or self-care (01) ==
LOC: LAB 08:50
PROVIDERS: ATTEND Physical Medicine & Rehabilitation
DX: Z01.818 Encounter for other preprocedural examination (principal); Z51.81 Encounter for therapeutic drug level monitoring
CPT/HCPCS: 36415; 80048; 85025; 85610; 85730; 93005